=== PATIENT | female | born 1965 | race African-American/Black ===

== ENCOUNTER → 2023-08-22 07:20 | Outpatient (REF) | payer MEDICARE, SELFPAY | LOC: DHCBC/DCA 07:20 | PROVIDERS: ATTENDING PHYSICIAN Internal Medicine Cardiovascular Disease; FAMILY PHYSICIAN Family Medicine | DX: I10 Essential (primary) hypertension (principal); R06.02 Shortness of breath | CPT/HCPCS: 78452; 93017; A9500; J2785 ==

== ENCOUNTER → 2023-09-07 08:11 | Outpatient (REF) | payer MEDICARE, SELFPAY | LOC: RCS 08:11 | PROVIDERS: ATTENDING PHYSICIAN Internal Medicine Cardiovascular Disease; FAMILY PHYSICIAN Student in an Organized Health Care Education/Training Program | DX: I10 Essential (primary) hypertension (principal); R06.02 Shortness of breath | CPT/HCPCS: 93306 ==

== ENCOUNTER 2023-09-26 06:08 | Day surgery (SDC) | payer MEDICARE, SELFPAY ==
[2023-09-26] VITALS (13 sets, daily range): BP systolic 117–154; BP diastolic 62–91; BMI 27.3
[2023-09-26 07:04] LABS: Glucose - Point of Care 320 mg/dl (70-99)
[2023-09-26] MEDS: NSS 259 ML IV (07:04)
[2023-09-26 07:14] LABS: INR 1.08; PT 13.8 Sec (11.4-14.6)
[2023-09-26 07:15] LABS: APTT 30.8 Sec (23.4-35.0)
[2023-09-26 07:18] LABS: Hematocrit 37.2 % (37.0-47.0); Hemoglobin 12.7 g/dL (12.0-16.0); Mean Corp Hgb Conc. 34.1 g/dL (33.0-37.0); Mean Corpuscular Hgb 28.4 pg (27.0-31.0); Mean Corpuscular Volume 83.2 fL (81.0-99.0); Platelet Count 451 10^3/uL (130-400); Red Blood Cell Count 4.47 10^6/uL (4.20-5.40); Red Cell Dist. Width 14.6 % (11.5-14.5)
--- NOTE | 2023-09-26 07:21 | ITS.CL.CATH ---
Filling Station Laborer - Catheterization
Cardiac Catheterization
Procedure Report:
LEFT HEART CATHETERIZATION
Date of Procedure: September 26, 2023
Referring: Nia Combs PA-C, and Alexx Regan MD
PROCEDURES:
1. Left catheterization, coronary angiogram.
2. Ultrasound-guided access
INDICATION: Patient is a 58-year-old female with past medical history of hypertension, COPD, depression, spinal stenosis, hyperlipidemia, insulin-dependent type 2 diabetes mellitus who presents with ongoing episodes of exertional chest discomfort
and shortness of breath after being found to have a abnormal stress test. Her Lexiscan nuclear stress test from August 22, 2023 showed a small/medium area of mildly/moderately decreased perfusion that is predominantly reversible in the basal
anteroseptal, basal anterior, basal anterolateral, basal inferolateral, basal inferior, mid anterior segment, mid anterolateral, mid inferolateral, mid inferior segment consistent with infarction with residual ischemia in anterior, inferior and
inferolateral and anterolateral klein. LVEF of 70%. Echocardiogram from September 07, 2023 shows an EF of 54% without significant valvular abnormalities.
ACCESS: Right radial artery, 6 Kinyarwanda sheath, using ultrasound guidance.
HEMODYNAMICS : (mmHg)
AO (s/d) : 138/73
LV (s/d) : 140/8
LVEDP : 25
CORONARY FINDINGS
DOMINANCE: Right
LEFT MAIN: The left main artery is a large-caliber vessel which gives rise to the left circumflex artery and the left anterior descending artery. There is minimal luminal irregularities.
LEFT ANTERIOR DESCENDING: The left anterior descending artery is a moderately tortuous medium caliber vessel which gives rise to 1 major diagonal branch as it courses through the anterior interventricular groove and wraps around the apex. There is
minimal luminal irregularities.
CIRCUMFLEX: The left circumflex artery is a medium caliber vessel which gives rise to 1 major branching obtuse marginal branch. There is minimal luminal irregularities. There is moderate degree of tortuosity in the mid left circumflex.
RIGHT CORONARY ARTERY: The right coronary is a medium caliber, dominant vessel which gives rise to the right posterior descending artery and a small right posterolateral system. There is mild to moderate tortuosity in the mid RCA. Ostial RPL
branch has 30% stenosis. Otherwise there is minimal luminal irregularities.
SEDATION: 40 minutes of procedural sedation was utilized. An independent chief medical physicist was present to assist with and help manage the patient's level of consciousness and physiologic status.
RADIATION SUMMARY: Fluoro Time (min):1.7, Dose (mGy): 217.4, DAP (Gy.cm2) : 14.16
Closure Device: Vascular band right radial artery, 11 cc of air.
CONCLUSIONS
1. Moderately tortuous coronary arteries. No obstructive coronary artery disease.
2. Elevated LVEDP of 25 mmHg.
RECOMMENDATIONS
1. Wean radial protocol.
2. Trial diuretic therapy in the setting of elevated LVEDP and ongoing dyspnea on exertion.
3. Aggressive management of cardiovascular risk factors.
Copy to: Oswaldo Nath D.O, Nia Combs PA-C, and Alexx Regan MD
Jannet Alejandre MD, [facility], [facility]
[2023-09-26 07:35] LABS: Blood Urea Nitrogen 15 mg/dl (7-17); Carbon Dioxide 29 mmol/L (22-30); Chloride 101 mmol/L (98-107); Estimated Creatinine Clearance 113 ml/min; Glucose 303 mg/dl (70-99); Potassium 4.4 mmol/L (3.5-5.1); Sodium 136 mmol/L (135-145); eGFR > 60.00
[2023-09-26 08:39] LABS: Glucose - Point of Care 293 mg/dl (70-99)
[2023-09-26] MEDS: LASIX 20 MG IV (09:10)
[2023-09-26] MEDS: NOVOLOG vial 6 UNITS SC (09:49)
[2023-09-26 09:51] LABS: Glucose - Point of Care 316 mg/dl (70-99)
== END 2023-09-26 12:08 | disposition home or self-care (01) ==
LOC: CATH 06:08
PROVIDERS: ATTENDING PHYSICIAN Internal Medicine Interventional Cardiology; FAMILY PHYSICIAN Student in an Organized Health Care Education/Training Program; OTHER PHYSICIAN Internal Medicine Cardiovascular Disease
DX: I25.10 Atherosclerotic heart disease of native coronary artery without angina pectoris (principal); R94.39 Abnormal result of other cardiovascular function study; E11.9 Type 2 diabetes mellitus without complications; R07.89 Other chest pain; Z79.4 Long term (current) use of insulin; E78.5 Hyperlipidemia, unspecified; J44.9 Chronic obstructive pulmonary disease, unspecified; I10 Essential (primary) hypertension; F32.A Depression, unspecified; M48.00 Spinal stenosis, site unspecified; R06.09 Other forms of dyspnea
CPT/HCPCS: 99152; 99153; 80048; 82962; 85027; 85610; 85730; 93458; C1894; Q9967